=== PATIENT | female | born 1950 | race Caucasian/White ===

== ENCOUNTER → 2023-09-09 11:25 | Outpatient (CLI) | payer MEDICARE, OTHER, SELFPAY ==
--- NOTE | 2023-09-09 | DI.RAD.S_ITS ---
Bone Density Report Name: GLORIA CHAVEZ Age: 72 Sex: Female Ethnicity: White Date of : 1950 Indication: postmenopausal; screening for osteoporosis; Referring Provider: GO LUBIN Study: Bone densitometry was performed. Exam Date: September 09, 2023 Accession number: [id number] Bone Density: Region BMD T-score Z-score Classification AP Spine(L1-L4) 0.856 -1.7 0.4 Osteopenia Femoral Neck (Left) 0.653 -1.8 0.1 Osteopenia Total Hip (Left) 0.826 -0.9 0.6 Normal Femoral Neck (Right) 0.648 -1.8 0.0 Osteopenia Total Hip (Right) 0.793 -1.2 0.3 Osteopenia Total Hip Mean 0.809 -1.1 0.5 Osteopenia World Health Organization criteria for BMD impression classify patients as: Normal (T-score at or above -1.0), Osteopenia (T-score between -1.0 and -2.5), or Osteoporosis (T-score at or below -2.5). 10-year Fracture Risk(1): Major Osteoporotic Fracture 11% Hip Fracture 1.8% Reported Risk Factors: [place] (), Neck BMD=0.653, BMI=28.3 (1) FRAX(R) Version 3.08. Fracture probability calculated for an untreated patient. Fracture probability may be lower if the patient has received treatment. Impression: The patient has low bone mass, based on the Left Femoral Neck T-score. The patient has an estimated ten-year risk of hip fracture of 1.8% and an estimated ten-year risk of major fracture of 11%, based on the WHO FRAX algorithm. Discussion: BONE DENSITY IS LOW AT ONE OR MORE SKELETAL SITES. This patient's lowest T-score is low at one or more skeletal sites. It meets the World Health Organization's (WHO) criteria for low bone mass (T-score between -1.0 and -2.5). The patient's 10-year risk of fracture as calculated by FRAX is less than the threshold where pharmacological therapy is recommended by the National Osteoporosis Foundation (NOF). However, all treatment decisions require clinical judgment and consideration of individual patient factors, including patient preferences, comorbidities, previous drug use, risk factors not captured in the FRAX model (e.g., frailty, falls, vitamin D deficiency, increased bone turnover, interval significant decline in bone density) and possible under or overestimation of fracture risk by FRAX. The patient should follow a healthful lifestyle (good nutrition with adequate calcium and vitamin D, and appropriate weight-bearing exercise). Follow-Up: Consider repeating this study in 2 to 3 years to reassess this patient's status, or sooner if there is some new clinical indication. Reported by: ALBA GUZMÁN M.D. on 09/09/2023 11:50:00 AM.
== END ==
PROVIDERS: PCP Family Medicine; Referring Provider Nurse Practitioner; Visit Provider Nurse Practitioner
DX: M81.0 Age-related osteoporosis without current pathological fracture (principal); M85.89 Other specified disorders of bone density and structure, multiple sites
CPT/HCPCS: 77080

== ENCOUNTER 2023-09-28 14:30 | Emergency (ER) | payer MEDICARE, OTHER, SELFPAY ==
[2023-09-28] VITALS (24 sets, daily range): BP systolic 91–149; BP diastolic 53–67; PULSE 63–95; RESP 13–31; TEMP 36.7; O2SAT 94–100; BMI 30.2
[2023-09-28 16:26] LABS: Add Manual Diff / Slide Review NO; Basophils Absolute Auto 0 /uL (0-100); Basophils Percent Auto 0.7 % (0-2); Eosinophils Absolute Auto 100 /uL (0-450); Eosinophils Percent Auto 1.7 % (2-4); Hematocrit 37.7 % (36-46); Hemoglobin 12.7 g/dL (12.0-16.0); Lymphocytes Absolute Auto 1400 /uL (1100-4500); Lymphocytes Percent Auto 21.6 % (25-40); Mean Corpuscular HGB Conc 33.7 % (30-36); Mean Corpuscular Volume 83.2 fL (80-100); Monocytes Absolute Auto 300 /uL (0-900); Monocytes Percent Auto 5.3 % (3-14); Neutrophils Absolute Auto 4500 /uL (1500-7000); Neutrophils Percent Auto 70.7 % (50-75); Platelet Count 81 X10^3/uL (150-400); Red Blood Cell Count 4.54 X10^6/uL (4.0-5.2); Red Cell Distribution Width 14.8 % (11.6-14.8); White Blood Cell Count 6.4 X10^3/uL (4.5-11.0)
[2023-09-28 16:31] LABS: Lactate (Lactic Acid) 1.3 mmol/L (0.7-2.1)
[2023-09-28 16:33] LABS: Alanine Aminotransferase 42 IU/L (<35); Albumin 3.9 g/dL (3.5-5.0); Albumin Globulin Ratio 1.1 (1.0-2.8); Alkaline Phosphatase 99 U/L (38-126); Aspartate Aminotransferase 47 IU/L (14-36); Bilirubin Total 0.7 mg/dL (0.2-1.3); Blood Urea Nitrogen 27 mg/dL (7-17); Calcium 9.2 mg/dL (8.4-10.2); Carbon Dioxide 25 mmol/L (22-32); Chloride 104 mmol/L (98-107); Estimated Glomerular Filt Rate > 60 mL/min (>60); Globulin 3.4 g/dL (1.7-4.1); Glucose 83 mg/dL (80-110); HEMOLYSIS 36 (0-50); Potassium 3.4 mmol/L (3.4-5.1); Sodium 137 mmol/L (137-145); Total Protein 7.3 g/dL (6.3-8.2)
[2023-09-28 16:41] LABS: Bacteria Urine None Seen; RBC Urine 0-1/HPF (0-5/HPF); Squamous Epithelial Cell Urine 0-1 /HPF (0-5/HPF); WBC Urine None Seen (0-5/HPF)
[2023-09-28 16:42] LABS: Culture Indicated Urine Cult Not Indicated
--- NOTE | 2023-09-28 17:13 | PC.NURSE ---
pt states that she started feeling sick last night. prior to bed she started to experience shaking, rigors and chills. pt did not take temp, but she did take ibuprofen. during the night, pt woke up to her teeth chattering because she was having chills so bad. pt does not currently have a fever. rigors were not note during assessment. pt denies any sob, cp, n/v/d. pt does state that her was sick about 1 week ago. vital signs stable and budget officer intact.
--- NOTE | 2023-09-28 17:28 | DI.RAD.S_ITS ---
PROCEDURE: XR CHEST 2V INDICATIONS: rigors TECHNIQUE: 2 views of the chest were acquired. COMPARISON: None. FINDINGS: Surgical changes and devices: Resection of distal right clavicle noted Lungs and pleura: Lungs are clear. No pleural effusions or pneumothorax. Mediastinum: Mediastinal contours are normal. Heart size is normal. Bones and chest wall: No suspicious bony abnormalities. Soft tissues appear unremarkable. IMPRESSION: No acute cardiopulmonary findings Approved by: Almas Ambrocio M.D. on 09/28/2023 at 17:17
--- NOTE | 2023-09-28 17:32 | ED_ITS ---
HPI - Weakness <Holden Valencia PA-C - Last Filed: 09/28/23 19:04> General Chief complaint: Weakness Stated complaint: Dr mayra/weak/headache/states riggers Time Seen by Provider: 09/28/23 15:19 Source: patient and other Mode of arrival: Ambulatory History of Present Illness HPI Narrative: 73-year-old female with past medical history hyperlipidemia, hypothyroidism presents to the ED with 3 days of rigors, chills, fatigue. Patient was seen by her PCP in [place] and tested negative for COVID and flu and RSV. Urine showed some blood and bilirubin. Her blood work also showed that her lactate dehydrogenase was elevated along with a lower kidney function. Notably, her GFR was 37, creatinine 1.5, BUN 26. Platelets were low at 76. Patient was sent to the ED for further evaluation. Patient describes her symptoms as rigors, chills that started 3 days ago, have resolved now. Patient states she feels somewhat fatigued but is not experiencing any other symptoms. She denies fever, chills, chest pain, shortness of breath, nausea, vomiting, abdominal pain, dysuria, lightheadedness, dizziness, syncope. Patient also has a baseline set of labs that she brought with her from 07/08/2023. Her GFR was 77, creatinine 0.82, BUN 16, platelets 221. Related Data Home Medications Medication Instructions Recorded Confirmed VITAMIN D (Vitamin D3) 2,000 unit PO 3 X WEEKLY ##0 11/04/11 Previous Rx's Medication Instructions Recorded levothyroxine 125 mcg tablet 62.5 mcg (1/2 x 125 mcg) PO QAM 06/29/17 (Synthroid) #90 tabs Allergies Allergy/AdvReac Type Severity Reaction Status Date / Time iodine [IODINE] Allergy Severe IVP Unverified 03/02/18 13:01 ANAPHYLAXIS Estrogens [ESTROGENS] Allergy Intermediate HIVES Unverified 03/02/18 13:01 LEVOFLOXIN Allergy Intermediate RASH Uncoded 03/02/18 13:01 PENICILLAN Allergy Intermediate RASH Uncoded 03/02/18 13:01 Review of Systems <Holden Valencia PA-C - Last Filed: 09/28/23 19:04> Constitutional Constitutional: Reports chills, Reports fatigue, Denies fever(s), Denies frequent falls, Reports headache(s), Denies lethargy and Denies weakness Eyes Eyes: Denies change in vision, Denies eye discharge, Denies irritation and Denies loss of vision ENT Ears, Nose, Mouth, and Throat: Denies change in voice, Denies dizziness, Reports headache(s), Denies neck pain, Denies sore throat and Denies throat swelling Cardiovascular Cardiovascular: Denies chest pain, Denies irregular heart rhythm, Denies lightheadedness, Denies palpitations, Denies dyspnea, Denies dyspnea on exertion and Denies orthopnea Respiratory Respiratory: Denies cough, Denies dyspnea, Denies dyspnea on exertion and Denies wheezing Gastrointestinal Gastrointestinal: Denies abdominal pain, Denies change in bowel habits, Denies diarrhea, Denies nausea and Denies vomiting Musculoskeletal Musculoskeletal: Denies neck pain and Denies numbness Integumentary/Breasts Skin/Breast: Denies pruritus, Denies erythema, Denies rash and Denies wounds Neurologic Neurologic: Denies behavioral changes, Denies confusion, Denies dizziness, Denies frequent falls, Reports headache(s), Denies loss of vision, Denies numbness and Denies weakness Psychiatric Psychiatric: Denies anxiety, Denies behavioral changes, Denies confusion, Denies depression, Denies homicidal ideation and Denies suicidal ideation Endocrine Endocrine: Reports fatigue, Denies flushing and Denies palpitations Hematologic/Lymphatic Hematologic/Lymphatic: Denies easy bruising Allergic/Immunologic Allergic/Immunologic: Denies urticaria, Denies throat swelling and Denies wheezing Patient History <Holden Valencia PA-C - Last Filed: 09/28/23 19:04> Surgical History Status post tonsillectomy and adenoidectomy Status post dilation and curettage Status post delivery Social History Smoking Status: Former smoker Smoking Status: Former smoker Substance Use Type: does not use Exam <Holden Valencia PA-C - Last Filed: 09/28/23 19:04> Narrative Exam Narrative: Const General:?cooperative, healthy appearing and comfortable [facility] Head:?normal to inspection Ears:?hearing grossly normal bilaterally Nose:?external nose normal Face and sinus:?normal facial exam and sinuses nontender Mouth:?oral mucosae normal Throat:?posterior oropharynx normal Eyes General:?appearance normal, both eyes and all related structures Neck Neck:?normal visual inspection and no lymphadenopathy noted Resp Effort & Inspection:?normal respiratory effort Auscultation:?clear to auscultation bilaterally Cardio Rate:?regular rate Rhythm:?regular rhythm GI Abdomen is soft, nondistended, nontender to palpation. No CVA tenderness. Neuro General:?patient alert, patient awake and patient oriented x3 Initial Vital Signs Initial Vital Signs: Vital Signs Temperature 98.0 F 09/28/23 15:03 Pulse Rate 63 09/28/23 15:03 Respiratory Rate 16 09/28/23 15:03 Blood Pressure 116/57 L 09/28/23 15:03 Pulse Oximetry 97 09/28/23 15:03 Oxygen Delivery Method Room Air 09/28/23 15:03 <Salome Bangura DO - Last Filed: 10/06/23 00:37> Initial Vital Signs Initial Vital Signs: Vital Signs Temperature 98.0 F 09/28/23 15:03 Pulse Rate 63 09/28/23 15:03 Respiratory Rate 16 09/28/23 15:03 Blood Pressure 116/57 L 09/28/23 15:03 Pulse Oximetry 97 09/28/23 15:03 Oxygen Delivery Method Room Air 09/28/23 15:03 Course <Holden Valencia PA-C - Last Filed: 09/28/23 19:04> Orders Ordered: Discontinued Medications Ketorolac Tromethamine (Ketorolac 30 Mg/Ml Vial) 15 mg IV NOW ONE Stop: 09/28/23 17:30 Last Admin: 09/28/23 18:10 Dose: 15 mg Documented By: NAVI Vital Signs Vital signs: Vital Signs - 8 hr 09/28/23 15:03 09/28/23 15:26 09/28/23 15:28 Temperature 98.0 F Pulse Rate 63 70 70 Respiratory Rate 16 19 19 Blood Pressure 116/57 L Pulse Oximetry 97 100 98 Oxygen Delivery Method Room Air 09/28/23 15:28 09/28/23 15:30 09/28/23 15:30 Temperature Pulse Rate 66 Respiratory Rate 17 Blood Pressure 106/58 L 104/53 L Pulse Oximetry 98 Oxygen Delivery Method 09/28/23 15:45 09/28/23 16:00 09/28/23 16:12 Temperature Pulse Rate 79 70 Respiratory Rate 20 22 Blood Pressure 125/58 L Pulse Oximetry 98 97 Oxygen Delivery Method 09/28/23 16:12 09/28/23 16:37 09/28/23 16:39 Temperature Pulse Rate 69 66 Respiratory Rate 17 Blood Pressure 103/54 L Pulse Oximetry 97 94 Oxygen Delivery Method 09/28/23 16:39 09/28/23 16:45 09/28/23 17:00 Temperature Pulse Rate 68 66 Respiratory Rate 13 16 Blood Pressure 91/66 Pulse Oximetry 100 98 Oxygen Delivery Method 09/28/23 17:00 09/28/23 17:15 09/28/23 17:30 Temperature Pulse Rate 70 68 66 Respiratory Rate 17 24 25 H Blood Pressure Pulse Oximetry 99 98 98 Oxygen Delivery Method 09/28/23 17:31 09/28/23 17:34 09/28/23 17:34 Temperature Pulse Rate 70 77 Respiratory Rate 26 H 31 H Blood Pressure 149/67 H Pulse Oximetry 98 99 Oxygen Delivery Method 09/28/23 17:46 09/28/23 18:00 09/28/23 18:01 Temperature Pulse Rate 95 H 73 Respiratory Rate 22 18 Blood Pressure 120/58 L Pulse Oximetry 100 Oxygen Delivery Method 09/28/23 18:01 09/28/23 18:15 09/28/23 18:30 Temperature Pulse Rate 68 66 68 Respiratory Rate 18 18 18 Blood Pressure Pulse Oximetry 98 98 98 Oxygen Delivery Method 09/28/23 18:31 09/28/23 18:31 Temperature Pulse Rate 68 Respiratory Rate 18 Blood Pressure 131/57 L Pulse Oximetry 97 Oxygen Delivery Method <Salome Bangura, - Last Filed: 10/06/23 00:37> Orders Ordered: Discontinued Medications Ketorolac Tromethamine (Ketorolac 30 Mg/Ml Vial) 15 mg IV NOW ONE Stop: 09/28/23 17:30 Last Admin: 09/28/23 18:10 Dose: 15 mg Documented By: MPO Vital Signs Vital signs: Vital Signs - 8 hr 09/28/23 15:03 09/28/23 15:26 09/28/23 15:28 Temperature 98.0 F Pulse Rate 63 70 70 Respiratory Rate 16 19 19 Blood Pressure 116/57 L Pulse Oximetry 97 100 98 Oxygen Delivery Method Room Air 09/28/23 15:28 09/28/23 15:30 09/28/23 15:30 Temperature Pulse Rate 66 Respiratory Rate 17 Blood Pressure 106/58 L 104/53 L Pulse Oximetry 98 Oxygen Delivery Method 09/28/23 15:45 09/28/23 16:00 09/28/23 16:12 Temperature Pulse Rate 79 70 Respiratory Rate 20 22 Blood Pressure 125/58 L Pulse Oximetry 98 97 Oxygen Delivery Method 09/28/23 16:12 09/28/23 16:37 09/28/23 16:39 Temperature Pulse Rate 69 66 Respiratory Rate 17 Blood Pressure 103/54 L Pulse Oximetry 97 94 Oxygen Delivery Method 09/28/23 16:39 09/28/23 16:45 09/28/23 17:00 Temperature Pulse Rate 68 66 Respiratory Rate 13 16 Blood Pressure 91/66 Pulse Oximetry 100 98 Oxygen Delivery Method 09/28/23 17:00 09/28/23 17:15 09/28/23 17:30 Temperature Pulse Rate 70 68 66 Respiratory Rate 17 24 25 H Blood Pressure Pulse Oximetry 99 98 98 Oxygen Delivery Method 09/28/23 17:31 09/28/23 17:34 09/28/23 17:34 Temperature Pulse Rate 70 77 Respiratory Rate 26 H 31 H Blood Pressure 149/67 H Pulse Oximetry 98 99 Oxygen Delivery Method 09/28/23 17:46 09/28/23 18:00 09/28/23 18:01 Temperature Pulse Rate 95 H 73 Respiratory Rate 22 18 Blood Pressure 120/58 L Pulse Oximetry 100 Oxygen Delivery Method 09/28/23 18:01 09/28/23 18:15 09/28/23 18:30 Temperature Pulse Rate 68 66 68 Respiratory Rate 18 18 18 Blood Pressure Pulse Oximetry 98 98 98 Oxygen Delivery Method 09/28/23 18:31 09/28/23 18:31 Temperature Pulse Rate 68 Respiratory Rate 18 Blood Pressure 131/57 L Pulse Oximetry 97 Oxygen Delivery Method MDM - Weakness <Holden Valencia PA-C - Last Filed: 09/28/23 19:04> Lab Data 09/28/23 16:00 09/28/23 16:00 Labs: Lab Results 09/28/23 09/28/23 Range/Units 16:00 16:20 WBC 6.4 (4.5-11.0) X10^3/uL RBC 4.54 (4.0-5.2) X10^6/uL Hgb 12.7 (12.0-16.0) g/dL Hct 37.7 (36-46) % MCV 83.2 (80-100) fL MCH 28.0 (26-34) PG MCHC 33.7 (30-36) % RDW 14.8 (11.6-14.8) % Plt Count 81 L (150-400) X10^3/uL Neut % (Auto) 70.7 (50-75) % Lymph % (Auto) 21.6 L (25-40) % [place] % (Auto) 5.3 (3-14) % Eos % (Auto) 1.7 L (2-4) % Baso % (Auto) 0.7 (0-2) % Neut # (Auto) 4500 (6529-7736) /uL Lymph # (Auto) 1400 (2224-9977) /uL [place] # (Auto) 300 (0-900) /uL Eos # (Auto) 100 (0-450) /uL Baso # (Auto) 0 (0-100) /uL Sodium 137 (137-145) mmol/L Potassium 3.4 (3.4-5.1) mmol/L Chloride 104 (98-107) mmol/L Carbon Dioxide 25 (22-32) mmol/L BUN 27 H (7-17) mg/dL Creatinine 0.90 (0.52-1.04) mg/dL Estimated GFR > 60 (>60) mL/min BUN/Creatinine Ratio 30.0 H (6-22) Glucose 83 (80-110) mg/dL Lactate 1.3 (0.7-2.1) mmol/L Calcium 9.2 (8.4-10.2) mg/dL Total Bilirubin 0.7 (0.2-1.3) mg/dL AST 47 H (14-36) IU/L ALT 42 H (<35) IU/L Alkaline Phosphatase 99 (38-126) U/L Total Protein 7.3 (6.3-8.2) g/dL Albumin 3.9 (3.5-5.0) g/dL Globulin 3.4 (1.7-4.1) g/dL Albumin/Globulin Ratio 1.1 (1.0-2.8) Urine RBC 0-1/hpf (0-5/HPF) Urine WBC None seen (0-5/HPF) Ur Squamous Epith Cells 0-1 /hpf (0-5/HPF) Urine Bacteria None seen (None) Ur Culture Indicated? Cult not indicated Urine Dip Bedside Urine Glucose Negative Bedside Urine Bilirubin - Negative Bedside Urine Ketone - Negative Urine Specific [place] 1.005 Bedside Urine Occult Blood ++ Bedside Urine pH 6.0 Bedside Urine Protein - Negative Bedside Urine Urobilinogen - Negative Bedside Urine Nitrite - Negative Bedside Urine Leukocytes - Negative Esterase MDM Narrative Medical decision making narrative: 73-year-old female with past medical history hyperlipidemia, hypothyroidism presents to the ED with 3 days of rigors, chills, fatigue. Concern for nephrolithiasis versus UTI versus thrombocytopenia versus UTI versus other viral infection versus other. Will obtain labs, UA. Labs show platelets low at 81. BUN 27, creatinine 0.9, GFR greater than 60. Mild elevation of transaminases with AST at 47, ALT at 42. Will obtain CT abdomen pelvis. Will reassess. CT abdomen pelvis without acute findings. Chest x-ray was normal. EKG was normal with sinus rhythm and occasional PVCs. No acute ST-T changes. No axis deviation. At this point it is reassuring that patient's kidney function is back to baseline, there is no evidence of nephrolithiasis or a UTI. However the thrombocytopenia and painless hematuria do need to be further investigated. Discussed findings with patient. Patient agrees to follow-up with her PCP for further workup and evaluation. ED return precautions were discussed with patient. Patient verbalized understanding. Medical records reviewed: Yes <Salome Bangura, DO - Last Filed: 10/06/23 00:37> Lab Data Labs: Lab Results 09/28/23 09/28/23 Range/Units 16:00 16:20 WBC 6.4 (4.5-11.0) X10^3/uL RBC 4.54 (4.0-5.2) X10^6/uL Hgb 12.7 (12.0-16.0) g/dL Hct 37.7 (36-46) % MCV 83.2 (80-100) fL MCH 28.0 (26-34) PG MCHC 33.7 (30-36) % RDW 14.8 (11.6-14.8) % Plt Count 81 L (150-400) X10^3/uL Neut % (Auto) 70.7 (50-75) % Lymph % (Auto) 21.6 L (25-40) % [place] % (Auto) 5.3 (3-14) % Eos % (Auto) 1.7 L (2-4) % Baso % (Auto) 0.7 (0-2) % Neut # (Auto) 4500 (7296-8586) /uL Lymph # (Auto) 1400 (2572-2334) /uL [place] # (Auto) 300 (0-900) /uL Eos # (Auto) 100 (0-450) /uL Baso # (Auto) 0 (0-100) /uL Sodium 137 (137-145) mmol/L Potassium 3.4 (3.4-5.1) mmol/L Chloride 104 (98-107) mmol/L Carbon Dioxide 25 (22-32) mmol/L BUN 27 H (7-17) mg/dL Creatinine 0.90 (0.52-1.04) mg/dL Estimated GFR > 60 (>60) mL/min BUN/Creatinine Ratio 30.0 H (6-22) Glucose 83 (80-110) mg/dL Lactate 1.3 (0.7-2.1) mmol/L Calcium 9.2 (8.4-10.2) mg/dL Total Bilirubin 0.7 (0.2-1.3) mg/dL AST 47 H (14-36) IU/L ALT 42 H (<35) IU/L Alkaline Phosphatase 99 (38-126) U/L Total Protein 7.3 (6.3-8.2) g/dL Albumin 3.9 (3.5-5.0) g/dL Globulin 3.4 (1.7-4.1) g/dL Albumin/Globulin Ratio 1.1 (1.0-2.8) Urine RBC 0-1/hpf (0-5/HPF) Urine WBC None seen (0-5/HPF) Ur Squamous Epith Cells 0-1 /hpf (0-5/HPF) Urine Bacteria None seen (None) Ur Culture Indicated? Cult not indicated Urine Dip Bedside Urine Glucose Negative Bedside Urine Bilirubin - Negative Bedside Urine Ketone - Negative Urine Specific [place] 1.005 Bedside Urine Occult Blood ++ Bedside Urine pH 6.0 Bedside Urine Protein - Negative Bedside Urine Urobilinogen - Negative Bedside Urine Nitrite - Negative Bedside Urine Leukocytes - Negative Esterase Discharge Plan Departure Patient Disposition: Home Clinical Impression: Thrombocytopenia Instructions: Platelet Count Activity Restrictions/Additional Instructions: You were evaluated in the ED today for chills, rigors, fatigue. Your CT abdomen pelvis and chest x-ray were normal. Your platelet count was low at 81 and needs further evaluation by your primary care provider. Your kidney function improved today compared to yesterday and is normal. Your urine shows no infection but does show some blood. Again this will need to be worked up by your primary care provider. You may need further referral to Urology, oncology which your primary care provider can provide. Please ensure good hydration. Return to the ED if you experience worsening symptoms, chest pain, shortness of breath. Prescriptions: No Action VITAMIN D (Vitamin D3) 2,000 unit PO 3 X WEEKLY Qty: 0 levothyroxine [Synthroid] 125 MCG tablet 62.5 mcg PO QAM Qty: 90 4RF Referrals: Maricruz Peterson MD [Primary Care Provider] - Stand Alone Forms: Patient Portal/API ED Sign-out <Salome Bangura DO - Last Filed: 10/06/23 00:37> Cosign ED Attending Reyna Attestation: I was immediately available in the department for consultation.
--- NOTE | 2023-09-28 17:35 | DI.CT.S_ITS ---
PROCEDURE: CT ABDOMEN PELVIS WO CON INDICATIONS: rigors; ?stones TECHNIQUE: After the administration of oral contrast, 5 mm thick sections acquired from the diaphragms to the symphysis. 5 mm coronal and sagittal reformats were performed. For radiation dose reduction, the following was used: automated exposure control, adjustment of mA and/or kV according to patient size. COMPARISON: None. FINDINGS: Lower thorax: The lung bases are clear. Heart size normal. No hiatal hernia. Liver: Normal in size and attenuation. No contour deformity present. Biliary system: Cholecystectomy. No intra or extrahepatic bile duct dilation. Pancreas: Unremarkable without mass or inflammation evident. Spleen: Normal in size and density. Adrenals: Normal morphology and density. Reproductive system: Unremarkable as visualized. Urinary system: Normal renal size and attenuation. No renal calculi, hydronephrosis, or solid mass present. Urinary bladder unremarkable. Gastrointestinal system: The bowel is unremarkable without evidence of bowel obstruction or inflammation. The stomach appears unremarkable. Appendix: Normal appendix identified. No evidence of appendicitis. Peritoneal spaces: No mesenteric or retroperitoneal adenopathy. No free air. No free fluid. Vasculature: The IVC, aorta and iliac vasculature are unremarkable. Abdominal wall: Abdominal wall intact without evidence of ventral or inguinal hernias. Musculoskeletal: Normal bone mineralization. Degenerative disc disease and arthropathy noted in lower lumbar spine. No acute fractures. IMPRESSION: 1. No acute CT findings in the abdomen and pelvis. Approved by: Almas Ambrocio M.D. on 09/28/2023 at 17:20
[2023-09-28] MEDS: KETOROLAC 30 MG/ML VIAL 15 MG IV (18:10)
--- NOTE | 2023-09-28 18:14 | PC.NURSE ---
pt is sitting up in bed. states that she has headache. 15mg of toradol given. pt a&ox4. denies sob, cp, n/v. frickertron checker intact. son at bedside.
== END 2023-09-28 19:08 | disposition home or self-care (01) ==
PROVIDERS: Emergency Medicine; Emergency Provider Student in an Organized Health Care Education/Training Program; PCP Family Medicine
DX: D69.6 Thrombocytopenia, unspecified (principal); R07.9 Chest pain, unspecified
CPT/HCPCS: 71046; 74176; 80053; 81003; 81015; 83605; 85025; 93005; 96374; 99284; J1885